=== PATIENT | male | born 1980 | race Two or more races ===

== ENCOUNTER 2022-06-28 04:04 | Emergency (ER) | payer MEDICAID ==
[~2022-06-28] VITALS: Ht 172.7 cm; Wt 106.0 kg
[2022-06-28] MEDS ORDERED: MORPHINE SULFATE 4 MG/ML SYR/VIAL IM ONE (04:30)
[2022-06-28] MEDS ORDERED: PROCHLORPERAZINE EDISYLATE 5 MG/ML 2ML VIAL IM ONE (04:30)
[2022-06-28 05:03] LABS: Basophils % (auto) 0.7 % (0.0-2.0); Eosinophils # (auto) 0.1 10 ^3/uL (0-0.8); Hemoglobin 14.9 g/dL (13.5-17.5); Lymphocytes # (auto) 1.4 10 ^3/uL (0.4-5.4); Monocytes # (auto) 0.7 10 ^3/uL (0-1.3); Nucleated Red Blood Cells % 0.1 %
[2022-06-28 05:05] LABS: Basophils # (auto) 0 10 ^3/uL (0-0.2); Hematocrit 42.1 % (41.0-53.0); Lymphocytes % (auto) 20.2 % (10.0-50.0); Mean Corpuscular Hemoglobin 33.9 pg (28.0-32.0); Mean Corpuscular Hgb Conc. 35.3 g/dL (32.0-36.0); Mean Corpuscular Volume 96.1 fL (80.0-100.0); Monocytes % (auto) 9.8 % (0.0-12.0); Neutrophils # (auto) 4.8 10 ^3/uL (1.6-8.6); Neutrophils % (auto) 68.3 % (37.0-80.0); Red Blood Cells 4.38 10^6/uL (4.5-5.90); Red Cell Distribution Width 15.4 % (11.8-14.3); White Blood Cell 7.1 10^3/uL (4.4-10.8)
[2022-06-28 05:19] LABS: Albumin 3.3 g/dL (3.4-5.0); Potassium 3.2 mmol/L (3.5-5.1)
[2022-06-28 05:23] LABS: BUN/Creatinine Ratio 11.1 (10.0-20.0); Bilirubin, Total 2.8 mg/dL (0.2-1.0); Total Protein 8.6 g/dL (6.4-8.2)
[2022-06-28 05:51] VITALS: BP 188/89
[2022-06-28 07:21] LABS: Urine Bacteria NONE SEEN /hpf (None Seen); Urine Blood Negative /uL (Negative); Urine WBC 2 /hpf (0 - 3)
== END 2022-06-28 06:29 | disposition left against medical advice (07) ==
LOC: ER 04:04
DX: R10.12 Left upper quadrant pain (principal); R51.9 Headache, unspecified; Z53.21 Procedure and treatment not carried out due to patient leaving prior to being seen by health care provider
CPT/HCPCS: 36415; 70450; 71250; 74176; 80053; 81001; 82150; 83690; 84484; 85025; 93005; 99281; J0780; J2270

== ENCOUNTER 2023-07-29 08:08 | Inpatient (IN) | payer MEDICAID ==
[~2023-07-29] VITALS: Ht 172.7 cm; Wt 97.0 kg
[2023-07-29] MEDS: SODIUM CHLORIDE 0.9% 1,000 ML IV ONE ×3 (08:19→18:40)
[2023-07-29] MEDS: DEXTROSE 10% 1,000 ML IV ONE ×2 (08:27→13:00)
[2023-07-29 08:30] VITALS: PULSE 139; RESP 22; O2SAT 92
[2023-07-29 09:00] LABS: Basophils # (auto) 0 10 ^3/uL (0-0.2); Basophils % (auto) 0.2 % (0.0-2.0); Eosinophils # (auto) 0 10 ^3/uL (0-0.8); Hematocrit 38.1 % (41.0-53.0); Hemoglobin 13.7 g/dL (13.5-17.5); Lymphocytes # (auto) 0.3 10 ^3/uL (0.4-5.4); Lymphocytes % (auto) 4.5 % (10.0-50.0); Mean Corpuscular Hemoglobin 33.6 pg (28.0-32.0); Mean Corpuscular Hgb Conc. 35.9 g/dL (32.0-36.0); Mean Corpuscular Volume 93.4 fL (80.0-100.0); Monocytes # (auto) 0.5 10 ^3/uL (0-1.3); Monocytes % (auto) 7.3 % (0.0-12.0); Neutrophils # (auto) 6.3 10 ^3/uL (1.6-8.6); Red Blood Cells 4.08 10^6/uL (4.5-5.90); Red Cell Distribution Width 14.8 % (11.8-14.3); White Blood Cell 7.2 10^3/uL (4.4-10.8)
[2023-07-29 09:18] LABS: Chloride 95 mmol/L (98-107); Sodium 134 mmol/L (136-145)
[2023-07-29 09:19] LABS: Anion Gap 16 (5-15); Calcium 7.7 mg/dL (8.5-10.1); Carbon Dioxide 23 mmol/L (20-30)
[2023-07-29 09:24] LABS: BUN/Creatinine Ratio 18.2 (10.0-20.0); Blood Urea Nitrogen 29 mg/dL (9-23); Glucose 76 mg/dL (74-106)
[2023-07-29] MEDS: ONDANSETRON HCL 4 MG/2 ML VIAL IV ONE (09:29)
[2023-07-29] MEDS: MORPHINE SULFATE 4 MG/ML SYR/VIAL IV ONE (09:30)
[2023-07-29 09:37] LABS: Urine Amorphous Crystal FEW /hpf (None Seen); Urine Bacteria FEW /hpf (None Seen); Urine Blood TRACE /uL (Negative); Urine Color Yellow (Yellow); Urine Protein, UAD TRACE (Negative); Urine Specific Gravity 1.014 (1.001-1.035); Urine Urobilinogen 3 mg/dL (Negative); Urine WBC 3 /hpf (0 - 3); Urine pH 5.5 (5.0-9.0)
[2023-07-29 09:46] LABS: Urine Clarity Clear (Clear)
[2023-07-29 10:09] LABS: Amphetamine Screen, Urine Neg (NEGATIVE); Barbiturate Scree,Urine Neg (NEGATIVE); Benzodiazephine Screen, Urine Neg (NEGATIVE); Cocaine Screen, Urine Neg (NEGATIVE); Opiate Scree,Urine Pos (NEGATIVE); Phencyclidine Screen, Urine Neg (NEGATIVE)
[2023-07-29 10:10] LABS: Cannabinoid Screen, Urine Neg (NEGATIVE)
[2023-07-29] MEDS: POTASSIUM EFFERVESENT TAB 25 MEQ PO ONE ×2 (10:57→11:39)
[2023-07-29] MEDS ORDERED: ONDANSETRON HCL 4 MG/2 ML VIAL IV PRN (12:00)
[2023-07-29] MEDS ORDERED: DEXTROSE (50%) 50ML SYRG IV PRN (12:00)
[2023-07-29] MEDS ORDERED: ACETAMINOPHEN 325 MG TAB PO PRN (12:00)
[2023-07-29] MEDS ORDERED: MORPHINE SULFATE INJ 2 MG/ml SYRG IV PRN (12:00)
[2023-07-29] MEDS ORDERED: NITROGLYCERIN 0.4 MG SL TAB SL PRN (12:00)
[2023-07-29] MEDS: CALCIUM GLUC 1,000mg/50ml-NS 50 ML IV ONE (13:02)
[2023-07-29] MEDS: ACCU-CHEK COMFORT CURVE STRIP VI SCH (13:07)
[2023-07-29] MEDS: InsuLIN REG 1unit/0.01ml Soln (100units/ml) SC SCH (13:08)
[2023-07-29 13:55] LABS: Alanine Aminotransferase 115 U/L (7-40); Alkaline Phosphatase 124 U/L (46-116); Aspartate Aminotransferase 176 U/L (13-40)
[2023-07-29 13:56] LABS: Bilirubin, Total 3.2 mg/dL (0.2-1.0); Creatine Kinase IFCC 993 U/L (46-171); Total Protein 7.9 g/dL (5.7-8.2)
[2023-07-29] MEDS ORDERED: traMADol HCL 50 MG TAB PO PRN (18:45)
[2023-07-29 20:31] VITALS: O2SAT 98
[2023-07-29 22:06] VITALS: BP 127/82; PULSE 97; RESP 18; TEMP 98.7; O2SAT 98
[2023-07-29] MEDS ORDERED: MELO15TA29 PO (23:02)
[2023-07-29] MEDS ORDERED: NORT25CA PO (23:02)
[2023-07-29] MEDS ORDERED: SILD100T73 PO (23:02)
[2023-07-29] MEDS ORDERED: HYDR-3682 PO (23:02)
[2023-07-29] MEDS ORDERED: METF-372 PO (23:02)
[2023-07-29] MEDS ORDERED: INSU1INJ3 SC (23:02)
[2023-07-29] MEDS ORDERED: TRAZ-228 PO (23:02)
[2023-07-29] MEDS ORDERED: LOSA-535 PO (23:02)
[2023-07-29] MEDS ORDERED: AMLO1TAB22 PO (23:02)
[2023-07-29] MEDS ORDERED: CYCL-611 PO (23:02)
[2023-07-30] VITALS (8 sets, daily range): BP systolic 110–135; BP diastolic 68–89; PULSE 91–108; RESP 17–18; TEMP 97.9–98.5; O2SAT 93–100
[2023-07-30] MEDS: HYDROcodone-ACET 5/325MG TAB PO PRN (00:09)
[2023-07-30 06:58] LABS: Basophils # (auto) 0 10 ^3/uL (0-0.2); Basophils % (auto) 0.4 % (0.0-2.0); Eosinophils # (auto) 0.1 10 ^3/uL (0-0.8); Eosinophils % (auto) 1.9 % (0.0-7.0); Hematocrit 31.3 % (41.0-53.0); Hemoglobin 10.9 g/dL (13.5-17.5); Lymphocytes # (auto) 1.4 10 ^3/uL (0.4-5.4); Lymphocytes % (auto) 21.3 % (10.0-50.0); Mean Corpuscular Hemoglobin 33.1 pg (28.0-32.0); Mean Corpuscular Hgb Conc. 34.8 g/dL (32.0-36.0); Monocytes % (auto) 14.2 % (0.0-12.0); Neutrophils # (auto) 4.2 10 ^3/uL (1.6-8.6); Neutrophils % (auto) 62.2 % (37.0-80.0); Red Cell Distribution Width 14.7 % (11.8-14.3); White Blood Cell 6.7 10^3/uL (4.4-10.8)
[2023-07-30 07:20] LABS: Alanine Aminotransferase 89 U/L (7-40); Albumin 3.2 g/dL (3.2-4.8); Alkaline Phosphatase 106 U/L (46-116); Anion Gap 9 (5-15); Aspartate Aminotransferase 117 U/L (13-40); BUN/Creatinine Ratio 20.2 (10.0-20.0); Bilirubin, Total 2.9 mg/dL (0.2-1.0); Blood Urea Nitrogen 19 mg/dL (9-23); Calcium 6.9 mg/dL (8.7-10.4); Carbon Dioxide 26 mmol/L (20-30); Chloride 102 mmol/L (98-107); Glucose 88 mg/dL (74-106); Potassium 2.9 mmol/L (3.5-5.1); Sodium 137 mmol/L (136-145); Total Protein 6.2 g/dL (5.7-8.2)
[2023-07-30] MEDS: POTASSIUM EFFERVESENT TAB 25 MEQ PO ONE (11:12)
[2023-07-30 11:57] LABS: Thyroid Stimulating Hormone 1.13 uIU/mL (0.55-4.78)
[2023-07-30] MEDS: MAGNESIUM SULFATE 1GM/100ML 100 ML IV ONE (13:04)
[2023-07-31] VITALS (7 sets, daily range): BP systolic 139–164; BP diastolic 81–102; PULSE 86–110; RESP 17–19; TEMP 98.2–98.9; O2SAT 91–98
[2023-07-31 08:59] LABS: Basophils # (auto) 0 10 ^3/uL (0-0.2); Basophils % (auto) 0.7 % (0.0-2.0); Eosinophils # (auto) 0.1 10 ^3/uL (0-0.8); Eosinophils % (auto) 1.8 % (0.0-7.0); Hematocrit 37.3 % (41.0-53.0); Hemoglobin 13.1 g/dL (13.5-17.5); Lymphocytes # (auto) 1.7 10 ^3/uL (0.4-5.4); Lymphocytes % (auto) 25.8 % (10.0-50.0); Mean Corpuscular Hemoglobin 33.6 pg (28.0-32.0); Mean Corpuscular Volume 95.9 fL (80.0-100.0); Monocytes # (auto) 0.8 10 ^3/uL (0-1.3); Monocytes % (auto) 12.2 % (0.0-12.0); Neutrophils # (auto) 3.9 10 ^3/uL (1.6-8.6); Neutrophils % (auto) 59.5 % (37.0-80.0); Red Blood Cells 3.89 10^6/uL (4.5-5.90); Red Cell Distribution Width 14.6 % (11.8-14.3); White Blood Cell 6.6 10^3/uL (4.4-10.8)
[2023-07-31 09:37] LABS: Alanine Aminotransferase 98 U/L (7-40); Albumin 4.1 g/dL (3.2-4.8); Alkaline Phosphatase 140 U/L (46-116); Anion Gap 9 (5-15); Aspartate Aminotransferase 111 U/L (13-40); BUN/Creatinine Ratio 15.7 (10.0-20.0); Blood Urea Nitrogen 11 mg/dL (9-23); Calcium 7.7 mg/dL (8.5-10.1); Carbon Dioxide 28 mmol/L (20-30); Chloride 101 mmol/L (98-107); Glucose 87 mg/dL (74-106); Potassium 3.6 mmol/L (3.5-5.1); Sodium 138 mmol/L (136-145)
[2023-07-31 09:38] LABS: Total Protein 8.1 g/dL (5.7-8.2)
[2023-07-31 13:16] LABS: Folate (Folic Acid) 9.14 ng/mL (>5.38); Free T4 (Free Thyroxine) 1.63 ng/dL (0.89-1.76)
== END 2023-07-31 15:15 | disposition home or self-care (01) | DRG 420 ==
LOC: EDUNIT# 08:08 → ER 08:08 → EDBD 08:08 → TELE 12:01 → TELE-CENTR 22:00
PROVIDERS: ADMIT Internal Medicine; ATTEND Internal Medicine
DX: E11.649 Type 2 diabetes mellitus with hypoglycemia without coma (principal); N17.0 Acute kidney failure with tubular necrosis; G93.41 Metabolic encephalopathy; I50.22 Chronic systolic (congestive) heart failure; I11.0 Hypertensive heart disease with heart failure; F17.210 Nicotine dependence, cigarettes, uncomplicated; R29.6 Repeated falls; E86.0 Dehydration; K76.0 Fatty (change of) liver, not elsewhere classified; E87.6 Hypokalemia; E83.42 Hypomagnesemia; R74.01 Elevation of levels of liver transaminase levels; E66.9 Obesity, unspecified; F10.10 Alcohol abuse, uncomplicated; Z79.4 Long term (current) use of insulin; Z68.32 Body mass index [BMI] 32.0-32.9, adult; Y90.9 Presence of alcohol in blood, level not specified
CPT/HCPCS: 36415; 70450; 71045; 73130; 73562; 76705; 80053; 80061; 80307; 81001; 82306; 82550; 82607; 82746; 82962; 83036; 83605; 83615; 83735; 84439; 84443; 85025; 93005; 93306; 96361; 96374; 96375; G0378; J1815; J2405